=== PATIENT | female | born 1990 | race Caucasian/White ===

== ENCOUNTER 2018-12-17 14:45 | Emergency (ER) | payer OTHER ==
--- NOTE | 2018-12-17 14:50 | PDOC ---
History of Present Illness - General Chief Complaint: Cold Symptoms Stated Complaint: BODY ACHES COUGH FEVER Time Seen by Provider: 12/17/18 14:48 Past History - Past Medical History Allergies/Adverse Reactions: Allergies Allergy/AdvReac Type Severity Reaction Status Date / Time No Known Allergies Allergy Unverified 12/17/18 14:47 Home Medications: Ambulatory Orders NK [No Known Home Medication] 12/17/18 *DC/Admit/Observation/Transfer - Discharge Dispostion Condition at time of disposition: Stable - Referrals - Patient Instructions - Post Discharge Activity
[2018-12-17] MEDS ORDERED: ACETAMINOPHEN 325 MG TABLET (FP) PO ONE (14:57)
[2018-12-17] MEDS ORDERED: ALBUTEROL SO4 2.5/IPRATROPIUM 0.5 INH SOL 3 ML VIAL.NEB. NEB ONE ×2 (14:59→15:02)
[2018-12-17] MEDS ORDERED: ONDANSETRON *ODT* 4 MG TABLET SL ONE (15:00)
[2018-12-17] MEDS ORDERED: ACETAMINOPHEN 500 MG TABLET (FP) ONE (15:02)
[2018-12-17 15:04] VITALS: BMI 29.5
[2018-12-17] MEDS ORDERED: ONDANSETRON *ODT* 4 MG TABLET ONE (15:13)
--- NOTE | 2018-12-17 16:20 | PDOC ---
History of Present Illness - General Chief Complaint: Cold Symptoms Stated Complaint: BODY ACHES COUGH FEVER Time Seen by Provider: 12/17/18 14:48 History Source: Patient Exam Limitations: No Limitations - History of Present Illness Initial Comments: 12/17/18 16:13 28 yo F previously healthy here with c/o cough congestion, myalgia. . started 2 days ago. fever high. did have nausea and vomiting few times . cough nonproductive. feels she is wheezing. no h/o asthma. no known sick contacts. no rash, except one small area dry skin right arm. immunizations as kid. took tylenol early am. none since. no other complaints. did not have flu shot this year. Past History - Past Medical History Allergies/Adverse Reactions: Allergies Allergy/AdvReac Type Severity Reaction Status Date / Time No Known Allergies Allergy Unverified 12/17/18 14:47 Home Medications: Ambulatory Orders Albuterol Sulfate Inhaler - [Ventolin HFA Inhaler -] 2 inh IH Q4H PRN #1 inh Azithromycin 250 mg PO DAILY #6 tablet 12/17/18 Ondansetron [Ondansetron Odt] 8 mg PO TID PRN #10 tab.rapdis MDD 3 12/17/18 COPD: No Other medical history: DENIES - Suicide/Smoking/Psychosocial Hx Smoking History: Never smoked Information on smoking cessation initiated: No Hx Alcohol Use: Yes Drug/Substance Use Hx: No Review of Systems - Review of Systems Constitutional: Yes: Chills, Fever HEENTM: Yes: Throat Pain Respiratory: Yes: Cough, Wheezing Cardiac (ROS): Yes: Lightheadedness. No: Chest Pain ABD/GI: Yes: Poor Appetite : No: Burning, Dysuria, Discharge Integumentary: No: Bruising Neurological: Yes: Headache. No: Numbness All Other Systems: Reviewed and Negative *Physical Exam - Vital Signs Last Vital Signs Temp Pulse Resp BP Pulse Ox 103.1 F H 108 H 16 126/78 99 12/17/18 14:46 12/17/18 14:46 12/17/18 14:46 12/17/18 14:46 12/17/18 14:46 - Physical Exam Comments: 12/17/18 16:22 awake alert lungs clear with rhonchourous breath sounds. heart rrr no mrg abd soft nt nd. ext wwp no edema. no calf tenderss. right arm with small scabbed area dry skin. no surrounding erythema. Moderate Sedation - Procedure Monitoring Vital Signs: Procedure Monitoring Vital Signs Temperature 103.1 F H 12/17/18 14:46 Pulse Rate 108 H 12/17/18 14:46 Respiratory Rate 16 12/17/18 14:46 Blood Pressure 126/78 12/17/18 14:46 O2 Sat by Pulse Oximetry (%) 99 12/17/18 14:46 ED Treatment Course - ADDITIONAL ORDERS Additional order review: Laboratory Results 12/17/18 15:32 Urine HCG, Qual Negative - RADIOLOGY Radiology Studies Ordered: Category Date Time Status CHEST PA & LAT [RAD] Stat Radiology 12/17/18 15:00 Ordered - Medications Given in the ED: ED Medications Discontinued Medications Generic Name Dose Route Start Last Admin Trade Name Freq PRN Reason Stop Dose Admin Acetaminophen 1,000 mg 12/17/18 14:57 12/17/18 15:10 Tylenol - PO 12/17/18 14:58 1,000 mg ONCE ONE Administration Albuterol/Ipratropium 1 amp 12/17/18 14:59 12/17/18 15:11 Duoneb - NEB 12/17/18 15:00 1 amp ONCE ONE Administration Ondansetron HCl 4 mg 12/17/18 15:00 12/17/18 15:14 Zofran Odt - SL 12/17/18 15:01 4 mg ONCE ONE Administration Medical Decision Making - Medical Decision Making 12/17/18 16:22 28 yo f with sxs of flu, plan cxr r/o pna, flu swab. tylenol oral hydration. [facility]. bartolome mcintosh dc on motrin, tylenol and rest fluids. sxs treatment. *DC/Admit/Observation/Transfer Diagnosis at time of Disposition: Bronchitis, Influenza A - Discharge Dispostion Disposition: HOME Condition at time of disposition: Improved Decision to Admit order: No - Prescriptions Prescriptions: Albuterol Sulfate Inhaler - [Ventolin HFA Inhaler -] 2 inh IH Q4H PRN #1 inh PRN Reason: Wheezing Azithromycin 250 mg PO DAILY #6 tablet Ondansetron [Ondansetron Odt] 8 mg PO TID PRN #10 tab.rapdis MDD 3 PRN Reason: Nausea - Referrals - Patient Instructions Printed Discharge Instructions: Influenza Additional Instructions: you should take motrin 600 mg every 8 hrs as needed for the fever and chills. drink plenty of fluids. you can use zofran 4 mg every 8 hrs as needed for nausea. follow up with your primary doctor. use aluterol inhaler 2 puffs every 4 hours as needed for cough and wheezing. you should take azithromycin 500 mg on day one, then 250 mg on days 2 - 5. return for persistant vomiting, fever not responding to tylenol or motrin, difficulty breathing or any concerns. - Post Discharge Activity
[2018-12-17 18:13] VITALS: BP 130/78; PULSE 80; TEMP 98.8
== END 2018-12-17 18:18 | disposition home or self-care (01) ==
LOC: FER 14:45
PROC: 3E0F7GC Introduction of Other Therapeutic Substance into Respiratory Tract, Via Natural or Artificial Opening (ICD-10-PCS; principal; 2018-12-17)
DX: J09.X2 Influenza due to identified novel influenza A virus with other respiratory manifestations (principal); J40 Bronchitis, not specified as acute or chronic
CPT/HCPCS: 71046-TC-FY; 84703; 87804; 99282-25; Q0162

== ENCOUNTER 2023-08-11 15:33 | Emergency (ER) | payer OTHER ==
[2023-08-11] MEDS ORDERED: FLUORESCEIN NA 1 EA STRIP OU ONE (15:52)
[2023-08-11] MEDS ORDERED: TETRACAINE 0.5% HCL 0.6ML DROPPER.BOTTLE OU ONE (15:52)
[2023-08-11] MEDS ORDERED: TETRACAINE 0.5% OPHTH SOLN 2 ML BOTTLE ONE (15:53)
[2023-08-11] MEDS ORDERED: FLUORESCEIN NA 1 EA STRIP ONE (15:53)
[2023-08-11 16:02] VITALS: BP 150/104; PULSE 92; RESP 18; TEMP 98.2; BMI 38.0
== END 2023-08-11 16:38 | disposition home or self-care (01) ==
LOC: FER 15:33
DX: H57.13 Ocular pain, bilateral (principal); H10.9 Unspecified conjunctivitis; S05.02XA Injury of conjunctiva and corneal abrasion without foreign body, left eye, initial encounter; X58.XXXA Exposure to other specified factors, initial encounter
CPT/HCPCS: 99283-25